=== PATIENT | male | born 1995 | race Caucasian/White ===

== ENCOUNTER 2017-08-16 14:39 | Emergency (ER) | payer OTHER ==
--- NOTE | 2017-08-16 17:03 | EDPHY ---
H & P Smoking Status: Current some day smoker Time Seen by Provider: 08/16/17 16:57 HPI/ROS: CHIEF COMPLAINT: Lip laceration HISTORY OF PRESENT ILLNESS: 22-year-old male arrives via private vehicle states that when he awoke this morning he stood up suddenly and had a syncopal episode, fell forward impacting his chin. He sustained a lower lip laceration which is not through and through. No prolonged periods of mobility. No headache. No nausea or vomiting. No midline C-spine pain. No peripheral paresthesia, weakness, numbness. No dental malalignment. No Dyspnea. REVIEW OF SYSTEMS: A ten point review of systems was performed and is negative with the exception of the items mentioned in the HPI PAST MEDICAL/SURGICAL HISTORY: no anticoagulant use, SOCIAL HISTORY: denies alcohol use at time of incident PHYSICAL EXAM 1) GENERAL: Well-developed, well-nourished, alert and oriented. Appears to be in no acute distress. Answering questions appropriately. 2) HEAD: Normocephalic, atraumatic 3) HEENT: Pupils equal, round, reactive to light bilaterally. Negative Horners. Nasopharynx, oropharynx, clear. No deformity or angulation of nose. No septal hematoma. No rhinorrhea. No oral trauma. Ears bilaterally with normal tympanic membranes. No hemotympanum. No fluid or blood in the external auditory canal. No raccoon eyes. No Todd sign. Chin abrasion. Lower lip laceration measuring 1.5 cm , not through and through. No signs of infection. Teeth are normally aligned with no gross malocclusion, TMJ bilaterally nontender , facial bones nontender including the zygomatic arch, maxilla mandible. 4) NECK: No cervical collar is on. Posterior cervical spine is nontender, no stepoff, no effusion. Full range of motion which does not elicit any midline cervical spine pain, no posterior midline tenderness, no step-off. 5) LUNGS: Clear to auscultation bilaterally, no wheezes, no rhonchi, no retractions. No obvious signs of trauma. No chest wall pain. No flaring, no grunting. Moving symmetrically. No crepitus. 6) HEART: [Regular rate and rhythm, 7) ABDOMEN: No guarding, no rebound, no focal tenderness, no peritoneal signs, no signs of trauma, no ecchymosis 8) MUSCULOSKELETAL: Moving all extremities, no focal areas of tenderness, no obvious trauma. 9) BACK: No midline vertebral tenderness, no fluctuance, no step-off, no obvious trauma, no visual or palpable abnormality. 10) SKIN: lower lip non through and through buccal mucosa laceration DIFFERENTIAL DIAGNOSIS: Not necessarily in any particular order, my differential diagnosis includes, but is not limited to, concussion, skull fracture, intraparenchymal contusion, subarachnoid, subdural and epidural hematoma. The patient understands that this diagnosis is provisional and can never be 100% accurate. (Jeniffer Sol) Constitutional: Initial Vital Signs Temperature (C) 36.6 C 08/16/17 14:54 Heart Rate 79 08/16/17 14:54 Respiratory Rate 16 08/16/17 14:54 Blood Pressure 117/73 08/16/17 14:54 O2 Sat (%) 97 08/16/17 14:54 O2 Delivery Mode Room Air Allergies/Adverse Reactions: Penicillins Allergy (Verified 08/16/17 14:54) Home Medications: Medication Instructions Recorded NK [No Known Home Meds] 08/16/17 MDM/Departure - MDM Procedures: Procedure: Laceration repair. I explained the indications, risks and benefits for both laceration repair and anesthetic administration. Verbal consent was obtained from the patient. The laceration on the be you cool mucosa was anesthetized using 0.5% bupivicaine with epinephrine. After anesthetic administered the patient was observed for a period of time and had no apparent adverse effects. The wound was cleaned, prepped, draped in normal sterile fashion and explored to its base. No foreign body seen, no foreign bodies palpated. There were no deep structures involved. Not through and through The wound was repaired with 2 simple interrupted 5 0 gut sutures. The wound repair was simple. The procedure was performed by myself. Patient has been informed that scarring will occur, although efforts have been made to minimize this. (Jeniffer Sol) ED Course/Re-evaluation: This patient has been evaluated by myself with serial examinations. He had a lower lip laceration which was closed by myself. This laceration is not through and through. His dentition is intact, he has no dental malalignment, no dental fractures, no facial bone pain, no maxillary or mandible bone pain, no TMJ.. I do not think that CT imaging of the maxillofacial region is indicated. In addition, he has negative Citizen [place] head and C-spine decision- making rules. Nonetheless I have offered CT imaging and he is in agreement he does not feel is indicated. He has been given usual customary head injury precautions instructions and he feels comfortable being discharged. (Jeniffer Sol) The patient was evaluated and managed by the Physician Hospital Scientist. My co- signature indicates that I have reviewed this chart and I agree with the findings and plan of care as documented. I am the secondary supervising physician. (Veronica Briscoe) - Depart Disposition: Home, Routine, Self-Care Clinical Impression: Laceration of lip Qualifiers: Encounter type: initial encounter Qualified Code(s): S01.511A - Laceration without foreign body of lip, initial encounter Condition: Good Instructions: Care For Your Stitches (ED), Laceration (ED) Additional Instructions: ALTHOUGH THERE IS NO EVIDENCE OF SERIOUS HEAD INJURY AT THIS TIME, DELAYED SIGNS CAN APPEAR 24 TO 48 HOURS AFTER INJURY. PLEASE RETURN TO THE EMERGENCY DEPARTMENT (ED) IMMEDIATELY IF YOU HAVE INCREASED HEADACHE, PERSISTENT HEADACHE , VOMITING, WEAKNESS, CONFUSION OR VISUAL PROBLEMS. WE RECOMMEND THAT YOU DO NOT RESUME CONTACT SPORTS OR ACTIVITIES THAT TAKE COORDINATION OR BALANCE SUCH SKIING OR RIDING A BICYCLE UNTIL CLEARED TO DO SO BY YOUR DOCTOR OR BY A NEUROLOGIST. Do not eat crunchy objects, do not eat objects with small particle matter like Poppy seeds Referrals: Nora Chavez MD [Medical Doctor] - 2-3 days, call for appt.
[2017-08-16 17:36] VITALS: BP 109/72
== END 2017-08-16 17:35 | disposition home or self-care (01) ==
PROC: 0CQ1XZZ Repair Lower Lip, External Approach (ICD-10-PCS; principal; 2017-08-16)
DX: S01.511A Laceration without foreign body of lip, initial encounter (principal); F17.200 Nicotine dependence, unspecified, uncomplicated; W01.0XXA Fall on same level from slipping, tripping and stumbling without subsequent striking against object, initial encounter

== ENCOUNTER 2017-08-22 08:10 | Emergency (ER) | payer OTHER ==
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
[2017-08-22 09:34] VITALS: BP 122/67
== END 2017-08-22 09:38 | disposition home or self-care (01) ==
DX: S01.511D Laceration without foreign body of lip, subsequent encounter (principal); F17.200 Nicotine dependence, unspecified, uncomplicated; V03.10XD Pedestrian on foot injured in collision with car, pick-up truck or van in traffic accident, subsequent encounter